=== PATIENT | male | born 1975 ===

== ENCOUNTER 2019-05-25 11:33 | Emergency (ER) | payer BC ==
--- NOTE | 2019-05-25 12:17 | EDM.PDOC ---
ED HPI GENERAL MEDICAL PROBLEM - General Chief Complaint: General Stated Complaint: fish bone stuck in throat Time Seen by Provider: 05/25/19 11:49 Source of Information: Reports: Patient History Limitations: Reports: No Limitations - History of Present Illness INITIAL COMMENTS - FREE TEXT/NARRATIVE: HISTORY AND PHYSICAL: History of present illness: Patient is a 44-year-old male presents to the ED today with concern of a fishbone stuck in his throat x 5 days. Patient states he was eating fish that his had cooked and he noticed the bone scraped the right side of his throat. Patient states since then he's had a discomfort on the right side of his throat and is unsure if the fish bone stuck there. Patient states he has been able to eat and drink since but does have pain on the right side of his throat when talking. Patient denies any other symptoms or concerns. Patient denies fever, chills, chest pain, shortness of breath, or cough. Denies headache, neck stiff ness, change in vision, syncope, or near syncope. Denies nausea, vomiting, abdominal pain, diarrhea, constipation, or dysuria. Has not noted any blood in urine or stool. Patient has been eating and drinking appropriately. Review of systems: As per history of present illness and below otherwise all systems reviewed and negative. Past medical history: As per history of present illness and as reviewed below otherwise noncontributory. Surgical history: As per history of present illness and as reviewed below otherwise noncontributory. Social history: See social history for further information Family history: As per history of present illness and as reviewed below otherwise noncontributory. Physical exam: General: Patient is alert, oriented, and in no acute distress. Patient sitting comfortably on exam table. HEENT: Atraumatic, normocephalic, pupils equal and reactive bilaterally, negative for conjunctival pallor or scleral icterus, mucous membranes moist, TMs normal bilaterally, throat clear and right tonsil appears irritated and erythematous but not edematous, no obvious foreign body noted, neck supple, nontender, trachea midline. No drooling or trismus noted. No meningeal signs. No hot potato voice noted. Lungs: Clear to auscultation, breath sounds equal bilaterally, chest nontender. Heart: S1S2, regular rate and rhythm without overt murmur Abdomen: Soft, nondistended, nontender. Negative for masses or hepatosplenomegaly. Negative for costovertebral tenderness. Pelvis: Stable nontender. Genitourinary: Deferred. Rectal: Deferred. Skin: Intact, warm, dry. No lesions or rashes noted. Extremities: Atraumatic, negative for cords or calf pain. Neurovascular unremarkable. Neuro: Awake, alert, oriented. Cranial nerves II through XII unremarkable. Cerebellum unremarkable. Motor and sensory unremarkable throughout. Exam nonfocal. Notes: I did call and speak to Dr. Castorena, general surgery and thoroughly discussed patient's case. She requests starting patient on a PPI for 2 weeks and to follow up with her in the clinic in 1-2 weeks. Discussed the importance for follow-up with the general surgery. Voices understanding and is agreeable to plan of care. Denies any further questions or concerns at this time. Diagnostics: CXR, Soft tissue neck XR, strep Therapeutics: None Prescription: Prilosec Impression: Dysphagia Plan: 1. Take medication as prescribed. You can alternate ibuprofen and Tylenol as directed for pain and discomfort. 2. Follow-up with Dr. Castorena, General Surgery, as discussed. The number has been provided above for you to call and set up an appointment time. 3. Return to the ED as needed and as discussed. Definitive disposition and diagnosis as appropriate pending reevaluation and review of above. Right Throat Pain Score (Numeric/FACES): 4 - Related Data Allergies Allergy/AdvReac Type Severity Reaction Status Date / Time No Known Allergies Allergy Verified 05/25/19 11:53 Home Meds: Home Meds . [No Known Home Meds] 05/25/19 [History] Past Medical History Cardiovascular History: Reports: None Respiratory History: Reports: None Gastrointestinal History: Reports: None Genitourinary History: Reports: None Musculoskeletal History: Reports: None Neurological History: Reports: None Psychiatric History: Reports: None Endocrine/Metabolic History: Reports: None Hematologic History: Reports: None Oncologic (Cancer) History: Reports: None Dermatologic History: Reports: None - Infectious Disease History Infectious Disease History: Reports: None - Past Surgical History Head Surgeries/Procedures: Reports: None HEENT Surgical History: Reports: Cataract Surgery Social & Family History - Tobacco Use Smoking Status *Q: Never Smoker Second Hand Smoke Exposure: No - Caffeine Use Caffeine Use: Reports: None - Recreational Drug Use Recreational Drug Use: No ED ROS GENERAL - Review of Systems Review Of Systems: Comprehensive ROS is negative, except as noted in HPI. ED EXAM, GENERAL - Physical Exam Exam: See Below (see dictation) Course - Vital Signs Last Recorded V/S: Last Vital Signs Temp 97.8 F 05/25/19 11:46 Pulse 65 05/25/19 11:46 Resp 18 05/25/19 11:46 BP 116/86 05/25/19 11:46 Pulse Ox 98 05/25/19 11:46 - Orders/Labs/Meds Orders: Active Orders 24 hr Category Date Time Status CULTURE STREP A CONFIRMATION [RM] Stat Lab 05/25/19 12:20 Results STREP SCRN A RAPID W CULT CONF [RM] Stat Lab 05/25/19 12:20 Results Departure - Departure Time of Disposition: 13:14 Disposition: Home, Self-Care 01 Clinical Impression: Dysphagia Qualifiers: Dysphagia type: unspecified Qualified Code(s): R13.10 - Dysphagia, unspecified - Discharge Information Referrals: PCP,None [Primary Care Provider] - Forms: ED Department Discharge Additional Instructions: The following information is given to patients seen in the emergency department who are being discharged to home. This information is to outline your options for follow-up care. We provide all patients seen in our emergency department with a follow-up referral. The need for follow-up, as well as the timing and circumstances, are variable depending upon the specifics of your emergency department visit. If you don't have a primary care physician on staff, we will provide you with a referral. We always advise you to contact your personal physician following an emergency department visit to inform them of the circumstance of the visit and for follow-up with them and/or the need for any referrals to a consulting specialist. The emergency department will also refer you to a specialist when appropriate. This referral assures that you have the opportunity for follow-up care with a specialist. All of these measure are taken in an effort to provide you with optimal care, which includes your follow-up. Under all circumstances we always encourage you to contact your private physician who remains a resource for coordinating your care. When calling for follow-up care, please make the office aware that this follow-up is from your recent emergency room visit. If for any reason you are refused follow-up, please contact the [facility] Emergency Department at and asked to speak to the emergency department charge nurse. FLORENCE NassarMariola [facility] [address] [place] [address] [facility] [address] [place] [address] [facility] - General Surgery, Dr. Castorena [facility] [address], [address] [place] [address] 1. Take medication as prescribed. You can alternate ibuprofen and Tylenol as directed for pain and discomfort. 2. Follow-up with Dr. Castorena, General Surgery, as discussed. The number has been provided above for you to call and set up an appointment time. 3. Return to the ED as needed and as discussed. - My Orders Last 24 Hours: My Active Orders 05/25/19 12:20 CULTURE STREP A CONFIRMATION [RM] Stat STREP SCRN A RAPID W CULT CONF [RM] Stat - Assessment/Plan Last 24 Hours: My Active Orders 05/25/19 12:20 CULTURE STREP A CONFIRMATION [RM] Stat STREP SCRN A RAPID W CULT CONF [RM] Stat
--- NOTE | 2019-05-25 12:52 | CR ---
EXAM DATE: 05/25/19 PATIENT'S AGE: 44 Soft tissue neck: AP and lateral views of the neck were obtained. Comparison: No prior study. Ligamentum nuchal calcification is seen posteriorly. Vertebral body heights and disc spaces are maintain within the cervical spine. Prevertebral soft tissues are normal. Epiglottis is normal. Impression: 1. Ligamentum nuchal calcification. 2. Two-view soft tissue neck exam is otherwise unremarkable. Diagnostic code #2 This report was dictated in [place] Standard Time Report Signed by Proxy. RAQUEL
== END 2019-05-25 13:22 | disposition home or self-care (01) ==
LOC: MW.ED 11:33
DX: R13.10 Dysphagia, unspecified (principal)
CPT/HCPCS: 70360; 70360-26; 87081; 87880-QW; 99283-25